=== PATIENT | male | born 1970 | race African-American/Black ===

== ENCOUNTER 2018-05-07 05:57 | Observation (INO) ==
[2018-04-29 12:48] LABS: Basophils % 0.5 % (0.0-0.8); Eosinophils # 0.2 10*3/uL (0.0-0.87); Eosinophils % 2.7 % (0.00-10.9); Hematocrit 45.1 VOL% (42.0-52.0); Hemoglobin 14.4 GM/DL (14.0-18.0); Immature Granulocytes % 0.2 %; Immature Granulocytes Absolute 0.01 #; Lymphocytes # 2.3 10*3/uL (1.4-4.0); Lymphocytes % 41.2 % (21.2-54.2); Mean Corpuscular HGB Conc 31.9 GM/DL (32-36); Mean Corpuscular Hemoglobin 27 PG (27-34); Mean Corpuscular Volume 84.8 FL (87-102); Mean Platelet Volume 9.6 FL (9.6-12.0); Monocytes # 0.4 10*3/uL (0.11-0.8); Monocytes % 7.6 % (1.7-12.7); Neutrophils # 2.7 10*3/uL (1.4-7.4); Neutrophils % 47.8 % (38.7-73.9); Platelet Count 237 T/CUMM (130-400); Red Blood Count 5.32 MC/CUMM (3.8-5.5); Red Cell Distribution Width 14.2 % (9.3-17.3); White Blood Count 5.6 T/CUMM (4-12)
[2018-04-29 13:18] LABS: Calcium 9.6 MG/DL (8.5-10.1); Osmolality,Calculated 275.5 MOS/KG (273-304); Potassium 4.4 MMOL/L (3.5-5.1)
[2018-04-29 14:28] LABS: Apearance,Urine CLEAR (Clear); Bilirubin,Urine Negative (Negative); Blood, Urine Negative (Negative); Glucose,Urine (UA) Negative (Negative); Ketones,Urine Negative (Negative); Mucus,Urine Occasional /LPF (Occasional); Nitrite,Urine Negative (Negative); Protein,Urine Negative; RBC,Urine 1 /HPF (0-4); Urine Color Yellow (Yellow); Urine Specific Gravity 1.011 (1.001-1.035); Urine Urobilinogen < 2.0 EU/DL (0.2-1.0)
[2018-05-07] MEDS ORDERED: ALVIMOPAN 12 MG CAPSULE ONE (06:02)
[2018-05-07] MEDS ORDERED: SODIUM PHOSPHATE ENEMA 133 ML BOTTLE RECTAL ONE ×2 (06:02→06:39)
[2018-05-07] MEDS ORDERED: cefTRIAXone 1,000 MG VIAL ONE (06:02)
[2018-05-07] MEDS ORDERED: cefTRIAXone 1,000 MG in SYRINGE 1 EACH IV ONE (06:30)
[2018-05-07] MEDS: LACTATED RINGERS 1,000 ML IV SCH (06:34)
[2018-05-07] MEDS ORDERED: ALVIMOPAN 12 MG CAPSULE PO STA (06:40)
[2018-05-07] MEDS ORDERED: SUGAMMADEX 200 MG/2 ML VIAL IV ONE (08:41)
[2018-05-07] MEDS ORDERED: ALBUMIN 5% 12.5 GM/250 ML VIAL IV ONE (10:11)
[2018-05-07] MEDS ORDERED: diphenhydrAMINE 50 MG/1 ML VIAL IV PRN (12:05)
[2018-05-07] MEDS ORDERED: MIDAZOLAM 2 MG/2 ML VIAL ONE (12:17)
[2018-05-07] MEDS ORDERED: PROPOFOL 200 MG/20 ML VIAL IV ONE (12:17)
[2018-05-07] MEDS ORDERED: DESFLURANE 1 UNIT/15 MINUTE INH ONE (12:17)
[2018-05-07] MEDS ORDERED: LACTATED RINGERS 1,000 ML IV ONE (12:18)
[2018-05-07] MEDS ORDERED: ROCURONIUM 100 MG/10 ML VIAL IV ONE (12:18)
[2018-05-07] MEDS ORDERED: DEXAMETHASONE 10 MG/1 ML VIAL ONE (12:18)
[2018-05-07] MEDS ORDERED: ONDANSETRON 4 MG/2 ML VIAL ONE ×2 (12:18)
[2018-05-07] MEDS ORDERED: fentaNYL 100 MCG/2 ML VIAL ONE (12:18)
[2018-05-07] MEDS ORDERED: ONDANSETRON 4 MG/2 ML VIAL IV PRN (12:19)
[2018-05-07] MEDS ORDERED: HYDROmorphone 2 MG/1 ML VIAL IV PRN (12:19)
[2018-05-07 12:23] LABS: Apearance,Urine CLEAR (Clear); Bilirubin,Urine Negative (Negative); Blood, Urine Large mg/dL (Negative); Glucose,Urine (UA) Negative (Negative); Ketones,Urine Negative (Negative); Mucus,Urine Occasional /LPF (Occasional); Nitrite,Urine Negative (Negative); Protein,Urine Negative; RBC,Urine 777 /HPF (0-4); Squamous Epithelial Cell,Urine Occasional /HPF (0-10); Urine Color Yellow (Yellow); Urine Specific Gravity 1.014 (1.001-1.035); Urine Urobilinogen < 2.0 EU/DL (0.2-1.0)
[2018-05-07] MEDS ORDERED: HYDROmorphone PCA 30 MG/30 ML SYRINGE IV SCH (12:30)
[2018-05-07] MEDS ORDERED: MEPERIDINE 25 MG/1 ML VIAL IV PRN (12:33)
[2018-05-07] MEDS: ONDANSETRON 4 MG/2 ML VIAL IV PRN ×2 (14:12→21:18)
[2018-05-07] MEDS: SODIUM CHLORIDE 0.9% 1,000 ML IV SCH ×2 (14:19→21:18)
[2018-05-07] MEDS: ALVIMOPAN 12 MG CAPSULE PO SCH (21:18)
[2018-05-08] MEDS: ONDANSETRON 4 MG/2 ML VIAL IV PRN ×3 (02:50→20:51)
[2018-05-08] MEDS: SODIUM CHLORIDE 0.9% 1,000 ML IV SCH (05:49)
[2018-05-08] MEDS: LACTATED RINGERS 1,000 ML IV SCH (07:12)
[2018-05-08] MEDS ORDERED: oxyCODONE/ACETAMINOPHEN 5-325 MG TABLET PO PRN ×2 (07:51)
[2018-05-08 08:44] LABS: Basophils % 0.1 % (0.0-0.8); Hematocrit 37.7 VOL% (42.0-52.0); Hemoglobin 12.1 GM/DL (14.0-18.0); Immature Granulocytes % 0.6 %; Immature Granulocytes Absolute 0.08 #; Lymphocytes # 1.1 10*3/uL (1.4-4.0); Lymphocytes % 7.9 % (21.2-54.2); Mean Corpuscular HGB Conc 32.1 GM/DL (32-36); Mean Corpuscular Hemoglobin 27 PG (27-34); Mean Corpuscular Volume 85.3 FL (87-102); Mean Platelet Volume 10.3 FL (9.6-12.0); Monocytes # 1.2 10*3/uL (0.11-0.8); Monocytes % 8.6 % (1.7-12.7); Neutrophils # 11.2 10*3/uL (1.4-7.4); Neutrophils % 82.8 % (38.7-73.9); Platelet Count 219 T/CUMM (130-400); Red Blood Count 4.42 MC/CUMM (3.8-5.5); Red Cell Distribution Width 14.3 % (9.3-17.3); White Blood Count 13.6 T/CUMM (4-12)
[2018-05-08 09:09] LABS: Calcium 8.4 MG/DL (8.5-10.1); Osmolality,Calculated 278.7 MOS/KG (273-304); Potassium 4.1 MMOL/L (3.5-5.1)
[2018-05-08] MEDS: OXYBUTYNIN XL 10 MG TABLET PO SCH (09:40)
[2018-05-08] MEDS: MAGNESIUM HYDROXIDE SUSP 30 ML UDCUP PO PRN ×2 (09:40→20:50)
[2018-05-08] MEDS: ALVIMOPAN 12 MG CAPSULE PO SCH ×2 (09:40→20:50)
[2018-05-08] MEDS: METOCLOPRAMIDE 10 MG/2 ML VIAL IV SCH ×3 (12:15→22:43)
[2018-05-08] MEDS: ACETAMINOPHEN 325 MG TABLET PO PRN (20:50)
[2018-05-09] MEDS: ACETAMINOPHEN 325 MG TABLET PO PRN ×2 (04:15→09:11)
[2018-05-09] MEDS: ONDANSETRON 4 MG/2 ML VIAL IV PRN ×2 (04:15→09:10)
[2018-05-09] MEDS: METOCLOPRAMIDE 10 MG/2 ML VIAL IV SCH (04:18)
[2018-05-09] MEDS: OXYBUTYNIN XL 10 MG TABLET PO SCH (09:10)
[2018-05-09] MEDS: MAGNESIUM HYDROXIDE SUSP 30 ML UDCUP PO PRN ×2 (09:10→20:54)
[2018-05-09] MEDS: ALVIMOPAN 12 MG CAPSULE PO SCH ×2 (09:10→20:54)
[2018-05-09] MEDS ORDERED: BISACODYL 10 MG SUPP RECTAL ONE (10:06)
[2018-05-10] MEDS: OXYBUTYNIN XL 10 MG TABLET PO SCH (08:37)
[2018-05-10] MEDS: ALVIMOPAN 12 MG CAPSULE PO SCH (08:37)
[2018-05-10 13:27] VITALS: BP 142/77
== END 2018-05-10 14:37 | disposition home or self-care (01) ==
LOC: N.OR 05:57 → N.5E 05:57 → N.SDSINP 05:58 → N.5E 13:14
PROVIDERS: ADMIT Urology; ATTEND Urology

== ENCOUNTER 2022-08-14 03:31 | Observation (INO) ==
[2022-08-14 10:07] LABS: Basophils % 0.2 % (0.0-0.8); Hematocrit 46.8 VOL% (42.0-52.0); Hemoglobin 15.1 GM/DL (14.0-18.0); Immature Granulocytes % 0.7 %; Immature Granulocytes Absolute 0.08 #; Lymphocytes # 0.7 10*3/uL (1.4-4.0); Lymphocytes % 5.9 % (21.2-54.2); Mean Corpuscular HGB Conc 32.3 GM/DL (32-36); Mean Corpuscular Volume 84.3 FL (87-102); Mean Platelet Volume 9.3 FL (9.6-12.0); Monocytes # 0.3 10*3/uL (0.11-0.8); Monocytes % 2.3 % (1.7-12.7); Neutrophils % 90.9 % (38.7-73.9); Platelet Count 328 T/CUMM (130-400); Red Blood Count 5.55 MC/CUMM (3.8-5.5); Red Cell Distribution Width 13.9 % (9.3-17.3); White Blood Count 12.2 T/CUMM (4-12)
[2022-08-14 10:10] LABS: Bilirubin,Urine Negative (Negative); Blood, Urine Small mg/dL (Negative); Glucose,Urine (UA) 100 mg/dL (Negative); Ketones,Urine 40 mg/dL (Negative); Mucus,Urine Occasional /LPF (Occasional); Nitrite,Urine Negative (Negative); Protein,Urine 100 mg/dL (Negative); RBC,Urine 7 /HPF (0-4); Squamous Epithelial Cell,Urine Occasional /HPF (0-10); Urine Appearance Clear (Clear); Urine Color Yellow (Yellow); Urine Specific Gravity 1.025 (1.001-1.035)
[2022-08-14 10:25] LABS: Lymphocytes 5 % (20-55); Platelet Estimate Adequate; Total Cells Counted 100
[2022-08-14 10:34] LABS: Albumin 4.6 G/DL (3.4-5.0); Calcium 9.6 MG/DL (8.5-10.1); Potassium 3.2 MMOL/L (3.5-5.1); Total Protein 9.2 G/DL (6.4-8.2)
[2022-08-14] MEDS ORDERED: ONDANSETRON 4 MG/2 ML VIAL IV PRN (15:50)
[2022-08-14] MEDS: HYDROmorphone 1 MG/1 ML SYRINGE IV SCH ×2 (17:54→19:21)
[2022-08-14] MEDS: PIPERACILLIN/TAZOBACTAM 3,375 MG in SODIUM CHLORIDE 0.9% 100 ML IV SCH (17:54)
[2022-08-14] MEDS: SODIUM CHLORIDE 0.9% 1,000 ML IV SCH (19:09)
[2022-08-15] MEDS: PIPERACILLIN/TAZOBACTAM 3,375 MG in SODIUM CHLORIDE 0.9% 100 ML IV SCH ×2 (00:50→09:44)
[2022-08-15] MEDS: SODIUM CHLORIDE 0.9% 1,000 ML IV SCH ×2 (01:56→12:49)
[2022-08-15] MEDS: HYDROmorphone 1 MG/1 ML SYRINGE IV SCH (07:10)
[2022-08-15] MEDS ORDERED: INDOCYANINE GREEN 25 MG VIAL IV ONE (07:11)
[2022-08-15] MEDS ORDERED: LIDOCAINE 2% 5 ML VIAL ONE (07:41)
[2022-08-15] MEDS ORDERED: propofoL 200 MG/20 ML VIAL IV ONE (07:41)
[2022-08-15] MEDS ORDERED: ROCURONIUM 50 MG/5 ML VIAL IV ONE (07:41)
[2022-08-15] MEDS ORDERED: ONDANSETRON 4 MG/2 ML VIAL ONE (07:41)
[2022-08-15] MEDS ORDERED: SEVOFLURANE 1 UNIT/15 MINUTE INH ONE (07:41)
[2022-08-15] MEDS ORDERED: MIDAZOLAM 2 MG/2 ML VIAL ONE ×2 (07:42→08:29)
[2022-08-15] MEDS ORDERED: fentaNYL 100 MCG/2 ML VIAL ONE ×2 (07:42→08:45)
[2022-08-15] MEDS ORDERED: PHENYLEPHRINE 10 MG/1 ML VIAL IV ONE (07:42)
[2022-08-15] MEDS ORDERED: BUPIVACAINE MPF 0.25% 10 ML VIAL ONE (08:08)
[2022-08-15] MEDS ORDERED: LIDOCAINE 1%/EPI INJ 20 ML VIAL ONE (08:08)
[2022-08-15] MEDS ORDERED: TISSUE ADHESIVE 1 EACH APPLICATOR TOP ONE (08:08)
[2022-08-15] MEDS ORDERED: LACTATED RINGERS 1,000 ML IV SCH (08:30)
[2022-08-15] MEDS ORDERED: PHENYLEPHRINE 1 MG/10 ML SYRINGE IV ONE (08:35)
[2022-08-15] MEDS ORDERED: PIPERACILLIN/TAZOBACTAM 3,375 MG VIAL IV ONE ×2 (08:42)
[2022-08-15] MEDS ORDERED: KETOROLAC 30 MG/1 ML VIAL ONE (08:54)
[2022-08-15] MEDS ORDERED: SODIUM CHLORIDE 0.9% 100 ML IV ONE (08:55)
[2022-08-15] MEDS ORDERED: NEOSTIGMINE 10 MG/10 ML VIAL ONE (09:18)
[2022-08-15] MEDS ORDERED: GLYCOPYRROLATE 0.4 MG/2 ML VIAL ONE (09:19)
[2022-08-15] MEDS ORDERED: HYDROmorphone 1 MG/1 ML SYRINGE IV PRN (09:57)
[2022-08-15] MEDS ORDERED: ONDANSETRON 4 MG/2 ML VIAL IV PRN (09:57)
[2022-08-15 15:48] VITALS: BP 142/82
[2022-08-16] MEDS ORDERED: amLODIPine 2.5 MG TABLET PO SCH (09:00)
[2022-08-16] MEDS ORDERED: hydroCHLOROthiazide 12.5 MG CAPSULE PO SCH (09:00)
[2022-08-16] MEDS ORDERED: OLMESARTAN 20 MG TABLET PO SCH (09:00)
== END 2022-08-15 15:45 | disposition home or self-care (01) ==
LOC: N.ED 03:31 → N.EDINP 16:39 → INTOOBSV 16:39 → N.3E 18:05
PROVIDERS: ADMIT Surgery; ATTEND Surgery